=== PATIENT | female | born 1995 | race Hispanic/Latino ===

== ENCOUNTER 2021-08-17 17:16 | Emergency (ER) | payer SELFPAY ==
[~2021-08-17] VITALS: Ht 162.6 cm; Wt 63.5 kg
[2021-08-17] MEDS ORDERED: KETOROLAC TROMETHAMINE 30 MG/ML VIAL IV STA (18:14)
[2021-08-17] MEDS ORDERED: ONDANSETRON HCL INJ 2MG/ML 2ML 2 MG/ML VIAL IV STA (18:14)
[2021-08-17] MEDS ORDERED: SODIUM CHLORIDE 0.9% 1000ML 1,000 ML IV SCH (18:15)
[2021-08-17] MEDS ORDERED: ONDANSETRON HCL INJ 2MG/ML 2ML 2 MG/ML VIAL ONE (18:31)
[2021-08-17] MEDS ORDERED: KETOROLAC TROMETHAMINE 30 MG/ML VIAL ONE (18:32)
[2021-08-17] MEDS ORDERED: SODIUM CHLORIDE 0.9% 1000ML 1,000 ML ONE (18:32)
[2021-08-17] MEDS ORDERED: CEFTRIAXONE 1 GM VIAL ONE (18:32)
[2021-08-17] MEDS ORDERED: SODIUM CHLORIDE 0.9% 100 ML ONE (21:10)
[2021-08-17] MEDS ORDERED: Morphine 4mg Syringe 4 MG/ML INJ IV ONE (21:15)
[2021-08-17] MEDS ORDERED: PROMETHAZINE 12.5MG/ NACL 0.9% 12.5 MG/50 ML BAG IV ONE (21:15)
[2021-08-17] MEDS ORDERED: Morphine 4mg Syringe 4 MG/ML INJ ONE (21:24)
[2021-08-17] MEDS ORDERED: ONDANSETRON ODT4 MG PO (21:32)
[2021-08-17] MEDS ORDERED: CEFUROXIME500 MG PO (21:34)
[2021-08-17] MEDS ORDERED: LEVSIN-SL0.125 MG SL (21:34)
[2021-08-17] MEDS ORDERED: NAPROSYN500 MG PO (21:37)
== END 2021-08-17 22:03 | disposition home or self-care (01) ==
LOC: FSED 17:22
DX: N30.91 Cystitis, unspecified with hematuria (principal); R10.30 Lower abdominal pain, unspecified; R11.0 Nausea; D64.9 Anemia, unspecified
CPT/HCPCS: 74176; 80053; 81003; 81025; 85025; 99284; J0696; J1885; J2270; J2405; J2550; J7030; J7050